=== PATIENT | male | born 1945 | race Caucasian/White ===

== ENCOUNTER → 2016-08-19 | Outpatient (CLI) | payer OTHER | LOC: BHFA 14:30 | PROVIDERS: ATTEND Internal Medicine Cardiovascular Disease | DX: I48.0 Paroxysmal atrial fibrillation (principal); I48.92 Unspecified atrial flutter ==

== ENCOUNTER → 2016-08-25 | Outpatient (CLI) | payer OTHER ==
[~2016-08-25] MED LIST: IOPAMIDOL (ISOVUE 370) 100 ML BTL IV ONE
[2016-08-25 09:51] LABS: CREATININE 1.3 mg/dL (0.7-1.3)
--- NOTE | 2016-08-25 10:20 | CT ---
CT Chest Angiogram With Contrast Enhancement and Multiplanar Reconstructions 0 927 hours History: Recurrent atrial fibrillation. Evaluate for pulmonary vein stenoses. Technique: Thin slice multidetector helical CT imaging was performed through the chest while 85 mL I sovue-370 were injected intravenously without complication. The images were then transferred to an in dependent workstation where multiplanar, volume rendering and three-dimensional reconstructions were performed by the interpreting physician and reviewed at multiple windows. Dose reduction techniques w ere utilized. Findings: CT Angiogram for left atrial anatomy: The pulmonary veins are evaluated. There are 2 main pulmonary v eins on the right as well as 2 on the left. The left atrial volume is 192 mL. Pulmonary veins draining right upper lobe: 22 x 20 mm diameter with branching occurring 6 mm from the origin. The right pulmonary vein draining right lower lun x 17 mm. Bifurcation occurs 9 mm from the orig in. Pulmonary vein draining left upper lun x 15 mm with branching occurring about 21 mm from the ame gin. Pulmonary vein draining left lower lun x 12 mm in diameter with branching occurring 23 mm from t he origin. There is normal enhancement of the pulmonary arterial vasculature without evidence of intraluminal th rombus. The thoracic aorta has a normal contour without aneurysm or dissection. CT Chest: There are no pulmonary nodules. There are no infiltrates or effusions. There is no hilar or mediastinal lymphadenopathy. Impression: Normal pulmonary vein anatomy, as detailed above. Normal CT Chest.
== END ==
LOC: FIMAGING 08:42
PROVIDERS: ATTEND Internal Medicine Cardiovascular Disease
DX: I48.91 Unspecified atrial fibrillation (principal)
CPT/HCPCS: 75572; Q9967

== ENCOUNTER 2016-08-31 11:09 | Observation (INO) | payer OTHER ==
[2016-08-31] MEDS ORDERED: NS 1,000 ML IV ONE (11:20)
[2016-08-31] MEDS ORDERED: MIDAZOLAM 2 MG/2 ML VIAL IVP ONE (11:20)
--- NOTE | 2016-08-31 11:47 | CPEKG ---
Heart Rate: 67 RR Interval: 896 P-R Interval: 192 QRSD Interval: 94 QT Interval: 400 QTC Interval: 423 P [place]: 68 QRS [place]: 49 T Wave [place]: 7 EKG Severity - ABNORMAL ECG - EKG Impression: SINUS RHYTHM EKG Impression: RIGHT VENTRICULAR HYPERTROPHY Electronically Signed By: Harvey Evans 31-Aug-2016 15:26:38
[2016-08-31 11:54] LABS: % IMMATURE GRANULYOCYTES 0.1 % (0.0-1.1); ABSOLUTE IMMATURE GRANULOCYTES 0.01 10^3/uL (0.00-0.10); ADD DIFF? NO; ADD MORPH? NO; ADD SCAN? NO; ATYPICAL LYMPHOCYTE FLAG 0 (0-99); FRAGMENT RBC FLAG 0 (0-99); HEMATOCRIT 48.7 % (40.0-51.0); HEMOGLOBIN 17.1 g/dL (13.7-17.5); LEFT SHIFT FLG 0 (0-99); LIPEMIA HEMOLYSIS FLAG 90 (0-99); MEAN CELL HEMOGLOBIN 32.6 pg (27.9-34.1); MEAN CELL HEMOGLOBIN CONCENTR. 35.1 g/dL (32.4-36.7); MEAN CELL VOLUME 92.9 fL (81.5-99.8); MEAN PLATELET VOLUME 9.7 fL (8.7-11.7); PLATELET CLUMPS FLAG 0 (0-99); PLATELET COUNT 205 10^3/uL (150-400); RED BLOOD CELL COUNT 5.24 10^6/uL (4.40-6.38); RED CELL DISTRIBUTION WIDTH 13.1 % (11.5-15.2)
[2016-08-31 12:07] LABS: INR 1.15 (0.83-1.16); PROTIME(PATIENT) 14.6 SEC (12.0-15.0)
[2016-08-31 12:08] LABS: APTT 31.3 SEC (23.0-38.0)
[2016-08-31 12:15] LABS: ANION GAP 10 mEq/L (8-16); CALCIUM 9.2 mg/dL (8.5-10.4); CARBON DIOXIDE 27 mEq/l (22-31); CHLORIDE 106 mEq/L (97-110); CREATININE 1.3 mg/dL (0.7-1.3); GLOMERULAR FILTRATION RATE 55; GLUCOSE 96 mg/dL (70-100); MAGNESIUM 2.1 mg/dL (1.6-2.3); POTASSIUM 4.4 mEq/L (3.5-5.2); SODIUM 143 mEq/L (134-144)
[2016-08-31] MEDS ORDERED: BUPIVACAINE 0.5% 30 ML SDV ONE (12:17)
[2016-08-31] MEDS ORDERED: LIDOCAINE 1% 30 ML SDV ONE (12:17)
[2016-08-31] MEDS ORDERED: HEPARIN 10,000 UNIT/10 ML MDV ONE (12:17)
[2016-08-31] MEDS ORDERED: HEPARIN/DEXTROSE 25,000 UNIT/500 ML BAG IV ONE (12:17)
[2016-08-31] MEDS ORDERED: IOPAMIDOL (ISOVUE-370) 150 ML BTL IV ONE (12:18)
[2016-08-31] MEDS ORDERED: PROPOFOL 200 MG/20 ML VIAL ONE (12:31)
[2016-08-31] MEDS ORDERED: fentaNYL 250 MCG/5 ML INJ ONE (12:31)
[2016-08-31] MEDS ORDERED: DEXAMETHASONE 4 MG/ML VIAL ONE ×2 (12:35→12:37)
[2016-08-31] MEDS ORDERED: ONDANSETRON 4 MG/2 ML VIAL ONE (12:35)
[2016-08-31] MEDS ORDERED: PHENYLEPHRINE HCL 100 MCG/ML SYR ONE (12:35)
[2016-08-31] MEDS ORDERED: SUCCINYLCHOLINE CHLORIDE*ANESTHESIA ONLY*200 MG/10 ML SYR IVP ONE (12:36)
[2016-08-31] MEDS ORDERED: DESFLURANE 240 ML BOTTLE IH ONE (13:19)
[2016-08-31] MEDS ORDERED: PROTAMINE SULFATE 50 MG/5 ML VIAL IVP ONE (15:21)
[2016-08-31] MEDS ORDERED: ACETAMINOPHEN 325 MG TAB PO PRN (15:30)
[2016-08-31] MEDS ORDERED: OXYCODONE/APAP 5/325 TAB PO PRN (15:30)
[2016-08-31] MEDS ORDERED: ONDANSETRON 4 MG/2 ML VIAL IVP PRN (15:30)
--- NOTE | 2016-08-31 15:42 | EPPROC ---
Electrophysiology Procedure Note: ELECTROPHYSIOLOGIC STUDY AND BALLOON-CATHETER MEDIATED CRYOABLATION FOR PAROXYSMAL ATRIAL FIBRILLATION and RF ABLATION FOR ATRIAL FLUTTER Procedures performed: 77971-13 EP evaluation with RA/RV/LA pace/record, with arrhythmia induction 57470-76 EP evaluation with RA/RV pace record, insert/reposition catheter, with arrhythmia induction 49056 Atrial fibrillation ablation Second arrhythmia Intracardiac echocardiogram Transseptal puncture Fluoroscopy INDICATION: Paroxysmal atrial fibrillation and atrial flutter PROCEDURE: The patient arrived in the Electrophysiology Laboratory in the fasting state. The right groin, left groin and right infraclavicular area were prepped and draped in the usual sterile fashion. Anesthesiologist administered general anesthesia - Dr. Arlette Doherty . All catheters were placed percutaneously using the Seldinger technique and advanced into position under fluoroscopic guidance. One #7 Marshallese deflectable octapolar electrode catheter was placed in the His-bundle position via the left femoral vein (2mm spacing, IVC electrode for unipolar recordings). This catheter was placed in the RA after transseptal puncture and later placed in the SVC-R subclavian vein junction to pace the right phrenic nerve during right pulmonary vein ablation. One #8 Marshallese AcuNaV ultrasound catheter was placed in the left femoral vein and advanced into the right atrium. One #4 Marshallese sheath was inserted into the left femoral artery via percutaneous technique and used for continuous arterial blood pressure monitoring and intermittent ACT determination. Programmed stimulation was performed from the right atrium, left atrium (CS) and right ventricle. There was no evidence of AV accessory pathway. 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 Intracardiac echo evaluation of the left atrium and pulmonary veins was performed. Baseline ACT was drawn and heparin bolus was administered and heparin drip was started prior to transseptal puncture. ACT was checked every 15 minutes and maintained in the range of 350-400 seconds. One 14Fr short sheath was placed in the right femoral vein. One 8Fr SL1 sheath was advanced into the right atrium via the 14Fr short sheath. Transseptal puncture was performed under intracardiac ultrasound, fluoroscopic and hemodynamic guidance placing the sheath into the left atrium. Ocean Butterflies RF needle ( C0 curve) was used. The mean left atrial pressure was 12 mmHg. Pulmonary vein angiogram was done using SL1 sheath. CT angiography of pulmonary veins was done previously. There were distinct LSPV, LIPV, RSPV and RIPV. The SL1 sheath was exchanged for a Medtronic Flexcath sheath using an Amplatz stiff guide wire. A 28 mm Cryoballoon catheter with a 20 mm Achieve catheter was placed via the sheath into the left atrium. Intracardiac ultrasound and PV angiograms were used to assist in placing the mapping catheter at the antrum of the pulmonary veins. All pulmonary veins were isolated successfully using cryoballoon ablation using freeze/thaw/freeze cycles at 2-3-minute intervals, with good [id number] of isolation. Coumadin ridge/Ligament of Rufino region was ablated. Pre and post pulmonary vein recordings were measured on the spiral Achieve catheter to ensure complete pulmonary vein isolation. During the right-sided ablation, phrenic nerve pacing was performed to assess the phrenic nerve strength ( manually and with ICE visualization of liver movement during phrenic capture) and the phrenic nerve was intact throughout the right-sided ablation and at the end of the procedure. An esophageal temperature probe (12 electrode, Circa) was placed by the anesthesiologist at the beginning of the procedure. Esophageal temperature was monitored continuously and cryoablation was interrupted if esophageal temperature was <15 C. Esophagus was closest to LSPV, there was temperature drop to 19 C with 1 ablation. Cryoapplications 8 total cryoablation time 1440 s. Catheters were withdrawn into RA. Flexcath was changed to short sheath, Agilis sheath was advanced into the RA. 3.5 mm irrigated ablation catheter was placed via the sheath and ablation done at the CT isthmus for atrial flutter. Bidirectional conduction block was achieved with septal to lateral conduction time of 205 ms. ICE imaging post ablation was consistent with pre ablation imaging with no changes noted, moreover there was no left atrial/left ventricular thrombus and no pericardial effusion. The catheters were withdrawn. Protamine was given. The sheaths were removed and manual pressure was used for hemostasis. The patient was recovered from anesthesia. There were no complications. The patient was arousable and moving all four extremities at the end of the procedure. CONCLUSIONS: 1. Paroxysmal atrial fibrillation. 2. Successful pulmonary vein isolation procedure (left and right pulmonary vein antrum) using cryoballoon ablation. 3. Irrigated RF ablation of cavotricuspid isthmus for atrial flutter. Bidirectional conduction block achieved. 4. No apparent complications. Patient Problems: Problems Problem Status Diagnosed Atrial fibrillation and flutter Acute
[2016-08-31] MEDS ORDERED: ATROPINE SULFATE 1 MG/10 ML SYR ONE (15:45)
--- NOTE | 2016-08-31 16:12 | CPEKG ---
Heart Rate: 81 RR Interval: 741 P-R Interval: 212 QRSD Interval: 98 QT Interval: 400 QTC Interval: 465 P [place]: 43 QRS [place]: 87 T Wave [place]: 6 EKG Severity - OTHERWISE NORMAL ECG - EKG Impression: SINUS RHYTHM EKG Impression: BORDERLINE RIGHT AXIS DEVIATION Electronically Signed By: Harvey Evans 01-Sep-2016 13:13:57
[2016-08-31 17:20] LABS: ANION GAP 9 mEq/L (8-16); CARBON DIOXIDE 20 mEq/l (22-31); CHLORIDE 109 mEq/L (97-110); CREATININE 1.2 mg/dL (0.7-1.3); GLOMERULAR FILTRATION RATE 60; GLUCOSE 135 mg/dL (70-100); MAGNESIUM 1.9 mg/dL (1.6-2.3); POTASSIUM 4.5 mEq/L (3.5-5.2); SODIUM 138 mEq/L (134-144)
[2016-08-31] MEDS ORDERED: ROSUVASTATIN CALCIUM 10 MG TAB PO SCH (21:00)
[2016-09-01] MEDS: ENOXAPARIN 80 MG/0.8 ML SYR SC SCH ×2 (00:59→08:14)
[2016-09-01] MEDS ORDERED: PANTOPRAZOLE SODIUM 40 MG TAB PO ONE (04:32)
[2016-09-01 05:20] LABS: % IMMATURE GRANULYOCYTES 0.4 % (0.0-1.1); ABSOLUTE IMMATURE GRANULOCYTES 0.05 10^3/uL (0.00-0.10); ADD DIFF? NO; ADD MORPH? NO; ADD SCAN? NO; ATYPICAL LYMPHOCYTE FLAG 0 (0-99); FRAGMENT RBC FLAG 0 (0-99); HEMATOCRIT 43.3 % (40.0-51.0); HEMOGLOBIN 15.1 g/dL (13.7-17.5); LEFT SHIFT FLG 0 (0-99); LIPEMIA HEMOLYSIS FLAG 90 (0-99); MEAN CELL HEMOGLOBIN 31.9 pg (27.9-34.1); MEAN CELL HEMOGLOBIN CONCENTR. 34.9 g/dL (32.4-36.7); MEAN CELL VOLUME 91.5 fL (81.5-99.8); MEAN PLATELET VOLUME 10.2 fL (8.7-11.7); PLATELET CLUMPS FLAG 0 (0-99); PLATELET COUNT 169 10^3/uL (150-400); RED BLOOD CELL COUNT 4.73 10^6/uL (4.40-6.38); RED CELL DISTRIBUTION WIDTH 13.1 % (11.5-15.2)
[2016-09-01 05:38] LABS: INR 1.15 (0.83-1.16); PROTIME(PATIENT) 14.6 SEC (12.0-15.0)
[2016-09-01 05:46] LABS: ANION GAP 9 mEq/L (8-16); CALCIUM 8.5 mg/dL (8.5-10.4); CARBON DIOXIDE 21 mEq/l (22-31); CHLORIDE 108 mEq/L (97-110); GLOMERULAR FILTRATION RATE > 60; GLUCOSE 120 mg/dL (70-100); POTASSIUM 4.4 mEq/L (3.5-5.2); SODIUM 138 mEq/L (134-144)
[2016-09-01 05:58] LABS: CK-MB INTERPRETATION POSITIVE (NEGATIVE)
[2016-09-01] MEDS: NEBIVOLOL HCL 5 MG TAB PO SCH ×2 (08:14→08:25)
[2016-09-01 08:18] VITALS: TEMP 97.7
--- NOTE | 2016-09-01 08:43 | CPEKG ---
Heart Rate: 76 RR Interval: 789 P-R Interval: 180 QRSD Interval: 94 QT Interval: 388 QTC Interval: 437 P [place]: 45 QRS [place]: 47 T Wave [place]: -6 EKG Severity - OTHERWISE NORMAL ECG - EKG Impression: SINUS RHYTHM EKG Impression: VENTRICULAR PREMATURE COMPLEX Electronically Signed By: Harvey Evans 01-Sep-2016 13:13:53
--- NOTE | 2016-09-01 08:44 | ECHO ---
[id number] + + [address] : : [place] [address] : : [phone] + Adult Echocardiographic Report + ----+ :Name: JAMES IZQUIERDO LStudy Date: 09/01/2016 07:15 AM : : Hospital Admission Number: [id number] Location: 249: :: 1945 Gender: Male Height: 71 in : :Age: 70 yrs Race: WH Weight: 175 lb : :Reason For Study: Post EP study : : BSA: 2.0 meters2 : + ----+ MMode/2D Measurements & Calculations IVSd: 1.0 cm LVIDd: 4.2 cm FS: 52.5 % Ao root diam: LVPWd: 0.77 cm LVIDs: 2.0 cm EDV(Teich): 3.7 cm 78.9 ml LA dimension: ESV(Teich): 3.0 cm 12.7 ml EF(Teich): 83.9 % LVLd ap4: 7.9 cm SV(MOD-sp4): EDV(MOD-sp4): 44.0 ml 62.0 ml LVLs ap4: 6.3 cm ESV(MOD-sp4): 18.0 ml EF(MOD-sp4): 71.0 % Normal Measurement Values: + + :LVIDd (3.5-5.7cm) IVSd (0.6-1.1cm) LVPWd (0.6-1.1cm) Aortic Root (2.0-3.7cm)Left Atrium (1.5-4.0cm): :LV Vol(d) (76-115ml) LV Vol(s) (29-48ml) Ejec Fraction (50-65%)PV Diomedes (0.6- 1.2m/s) TV Diomedes (0.4-1.0m/s) : :MV E Diomedes (0.8-1.0m/s)MV A Diomedes (0.3-1.0m/s)LVOT Diomedes (0.7-1.2m/s) Asc Ao Diomedes ( 0.9-1.8m/s) : + + Doppler Measurements & Calculations MV E max diomedes: 60.2 cm/sec Ao V2 max: 114.0 cm/sec MV A max diomedes: 50.8 cm/sec Ao max P.2 mmHg MV E/A: 1.2 Left Ventricle The left ventricle is normal in size and function. There is normal left ventricular wall thickness. Left ventricular systolic function is normal. Ejection Fraction = 70-75%. No regional wall motion abnormalities noted. Right Ventricle The right ventricle is normal in size and function. Atria The left atrial size is normal. Right atrial size is normal. The interatrial septum is intact with no evidence for an atrial septal defect. Mitral Valve Prolapse of the posterior mitral leaflet(s). There is no mitral valve stenosis. Tricuspid Valve Normal tricuspid valve. There is mild tricuspid regurgitation. Right ventricular systolic pressure is normal. Aortic Valve The aortic valve is trileaflet. The aortic valve opens well. There is no aortic stenosis. There is no aortic insufficiency. Pulmonic Valve The pulmonic valve is normal in structure and function. Trace pulmonic valvular regurgitation. Great Vessels The aortic root is normal size. Pericardium/Pleural There is no pericardial effusion. Conclusion A complete two-dimensional transthoracic echocardiogram was performed (2D, M-mode, Doppler and color flow Doppler). The left ventricle is normal in size and function. Left ventricular systolic function is normal. Ejection Fraction = 70-75%. There is mild tricuspid regurgitation. Trace pulmonic valvular regurgitation. There is no pericardial effusion. Final Reading Physician: Harvey Evans MD electronically signed on 09/01/2016 08:42 AM Ordering Physician: Harevy Evans Performed By: Cathy Rodriguez, [facility]
[2016-09-01] MEDS ORDERED: PANTOPRAZOLE SODIUM 40 MG TAB PO SCH (09:00)
[2016-09-01] MEDS ORDERED: ASPIRIN EC 81 MG TAB PO SCH (09:00)
[2016-09-01 11:15] VITALS: BP 124/71; PULSE 75; RESP 15; O2SAT 97
--- NOTE | 2016-09-01 18:52 | GDS ---
[f rep st] DISCHARGE SUMMARY ADMIT DIAGNOSES: 1. Atrial fibrillation. 2. Atrial flutter. 3. Planned EP study with likely atrial fibrillation/atrial flutter ablation. DISCHARGE DIAGNOSIS: Status post successful cryo ablation for paroxysmal atrial fibrillation and RF ablation for atrial flutter. HOSPITAL COURSE: The patient was admitted to the hospital on August 31, 2016 for planned electrophy siology study and probable atrial fibrillation and atrial flutter ablation. He had failed medical th erapy. He was taken to the EP lab where Dr. Evans was able to perform successful pulmonary vein isolat ion procedure (left and right pulmonary vein antrum) using cryo balloon ablation. Balloon catheter m ediated cryoablation for paroxysmal atrial fibrillation, and RF ablation for atrial flutter. There w ere no complications. He was taken to ICU step-down for overnight observation where he has done well . He has had no groin bleeding, no breakthrough atrial fibrillation noted. He is asymptomatic. He has been up ambulating the halls with no side effects, dizziness, or groin bleeding. He was given Lo venox injection this morning and will resume Pradaxa starting this evening. Echocardiogram was done with no identified abnormalities. He will stop Rythmol at this time and continue his Bystolic. At t his time, he currently is stable for discharge. ALLERGIES: He has allergies to ketamine. HOME MEDICATIONS: Crestor 10 mg at bedtime, Bystolic 2.5 mg daily, aspirin 81 mg daily, Prilosec 20 mg daily, Pradaxa 150 mg b.i.d., Tylenol 325 mg 1-2 tablets every 4 hours as needed for pain, not to exceed 3 g daily. DISCHARGE PHYSICAL EXAM: VITAL SIGNS: On day of discharge, blood pressure 124/71, heart rate 75 and regular, oxygen saturation 97%, temperature 36.5 Celsius. HEART: Rate regular. No murmurs rubs or gallops. LUNGS: Sounds are clear to auscultation. No wheezes, rales, or rhonchi. Bilateral groin sites are intact with no bleeding, induration or tenderness. Peripheral pulses are 2+ bilaterally. DISCHARGE PLAN: He will follow up with Dr. Evans in 2 weeks. This appointment was previously schedule d. He will stop his Rythmol. He will continue on Bystolic and continue omeprazole for 4 weeks. He will restart his Pradaxa this evening. Groin site precautions were reviewed with him. He is to avoi d aggressive exercise for 3 weeks. No sitting in a tub of water for 1 week. He will call the office should he have any concerns or problems. At this time, he currently is stable for discharge. /[id number]/MODL
[2016-09-01] MEDS ORDERED: DABIGATRAN ETEXILATE MESYL 150 MG CAP PO SCH (21:00)
--- NOTE | 2016-09-08 08:33 | ECHO ---
[id number] + + [address] : : [facility] [address] : : [phone] + + Transesophageal Echocardiographic Report + -------+ :Name: JAMES IZQUIERDO LStudy Date: 08/31/2016 12:57 PM : : Hospital Admission Number: [id number] Location: lab: :: 1945 Gender: Male : :Age: 70 yrs Race: WH : :Reason For Study: Eval LV Fx, BE : :History: Pre Ablation : + -------+ Left Ventricle The left ventricular ejection fraction is normal. Atria Injection of contrast documented no interatrial shunt. The interatrial septum is intact with no evidence for an atrial septal defect. No left atrial mass or thrombus visualized. No thrombus is detected in the left atrial appendage. Mitral Valve The mitral valve is normal. There is no mitral valve stenosis. There is trace mitral regurgitation. Tricuspid Valve The tricuspid valve is normal in structure and function. Aortic Valve The aortic valve is trileaflet. The aortic valve opens well. There is no aortic stenosis. There is no aortic insufficiency. Pulmonic Valve The pulmonic valve is normal in structure and function. There is no pulmonic valvular regurgitation. Conclusion A 2D transesophageal echocardiogram with color flow Doppler was performed. The left ventricular ejection fraction is normal. Injection of contrast documented no interatrial shunt. The interatrial septum is intact with no evidence for an atrial septal defect. No left atrial mass or thrombus visualized. No thrombus is detected in the left atrial appendage. The mitral valve is normal. There is trace mitral regurgitation. The aortic valve is trileaflet. The aortic valve opens well. Final Reading Physician: Harvey Evans MD electronically signed on 09/08/2016 08:31 AM Ordering Physician: Harvey Evans Performed By: Harvey Evnas MD
== END 2016-09-01 12:22 | disposition home or self-care (01) ==
LOC: FCATH 11:09 → F2N 15:30
PROVIDERS: ADMIT Internal Medicine Cardiovascular Disease; ATTEND Internal Medicine Cardiovascular Disease
PROC: 025S3ZZ Destruction of Right Pulmonary Vein, Percutaneous Approach (ICD-10-PCS; principal; 2016-08-31)
PROC: B244ZZZ Ultrasonography of Right Heart (ICD-10-PCS; principal; 2016-08-31)
PROC: 4A0234Z Measurement of Cardiac Electrical Activity, Percutaneous Approach (ICD-10-PCS; principal; 2016-08-31)
PROC: 4A023FZ Measurement of Cardiac Rhythm, Percutaneous Approach (ICD-10-PCS; principal; 2016-08-31)
PROC: 02563ZZ Destruction of Right Atrium, Percutaneous Approach (ICD-10-PCS; principal; 2016-08-31)
DX: I48.0 Paroxysmal atrial fibrillation (principal); I48.92 Unspecified atrial flutter; Z79.01 Long term (current) use of anticoagulants
CPT/HCPCS: 93005; 93306; 93609; 93621; 93655; 93656; 93662; C1730; C1731; C1732; C1733; C1766; C1893; C2630; J0330; J1100; J1644; J1650; J2250; J2370; J2405; J2704; J2720; J3010; Q9967; J0461

== ENCOUNTER → 2016-09-02 | Outpatient (CLI) | payer OTHER | LOC: BHFA 14:45 | PROVIDERS: ATTEND Internal Medicine Cardiovascular Disease | DX: I48.0 Paroxysmal atrial fibrillation (principal); I48.92 Unspecified atrial flutter; I10 Essential (primary) hypertension; E78.5 Hyperlipidemia, unspecified ==

== ENCOUNTER → 2016-09-17 | Outpatient (CLI) | payer OTHER | LOC: BHFA 09:45 | PROVIDERS: ATTEND Internal Medicine Cardiovascular Disease | DX: I48.91 Unspecified atrial fibrillation (principal) ==

== ENCOUNTER → 2016-10-19 | Outpatient (CLI) | payer OTHER | LOC: BHFA 09:30 | PROVIDERS: ATTEND Internal Medicine Cardiovascular Disease | DX: I48.91 Unspecified atrial fibrillation (principal) ==

== ENCOUNTER → 2016-12-17 | Outpatient (CLI) | payer OTHER | LOC: BHFA 10:00 | PROVIDERS: ATTEND Internal Medicine Interventional Cardiology | DX: I48.91 Unspecified atrial fibrillation (principal) ==

== ENCOUNTER 2016-12-30 12:12 | Emergency (ER) | payer OTHER ==
[2016-12-30 12:21] VITALS: RESP 16; O2SAT 95
--- NOTE | 2016-12-30 12:33 | CPEKG ---
Heart Rate: 68 RR Interval: 882 P-R Interval: 184 QRSD Interval: 88 QT Interval: 392 QTC Interval: 417 P [place]: 40 QRS [place]: 50 T Wave [place]: 13 EKG Severity - NORMAL ECG - EKG Impression: SINUS RHYTHM Electronically Signed By: Valentín Huntley 30-Dec-2016 15:33:04
--- NOTE | 2016-12-30 13:01 | EDPHY ---
H & P Stated Complaint: pre syncope last night, got dizzy no pain, hx a fib ablation Time Seen by Provider: 12/30/16 13:00 HPI/ROS: CHIEF COMPLAINT: Syncope HISTORY OF PRESENT ILLNESS: The patient presents to the ED for evaluation after a he experienced a syncopal episode last night. The patient reportedly did have a busy day yesterday with not much to eat or drink. He reportedly had 1 syncopal episode approximately 6 o'clock in the evening. Patient did feel better after rehydrating at his house. The patient had no recurrent syncope. He had no complaints of chest pain or shortness of breath. The patient does have a history of atrial fibrillation and reportedly had a Holter monitor performed last week. The patient also has a history of atrial fibrillation treated with ablation in August of this year. The patient has not had any sensation of atrial fibrillation over the past 2 days. The patient has continued to be entirely asymptomatic today. He specifically denies chest pain , pleuritic chest pain, orthostasis, headache, numbness, weakness or other concerns. REVIEW OF SYSTEMS: A comprehensive 10 point review of systems is otherwise negative aside from elements mentioned in the history of present illness. Source: Patient Exam Limitations: No limitations - Personal History Current Tetanus/Diphtheria Vaccine: Unsure Current Tetanus Diphtheria and Acellular Pertussis (TDAP): Unsure - Medical/Surgical History Hx Asthma: No Hx Chronic Respiratory Disease: No Hx Diabetes: No Hx Cardiac Disease: Yes Hx Renal Disease: No Hx Cirrhosis: No Hx Alcoholism: No Hx HIV/AIDS: No Hx Splenectomy or Spleen Trauma: No Other PMH: PMH- AFIB, ablation 09/11. PSH- TRP, R TOTAL HIP - Social History Smoking Status: Never smoked - Physical Exam Exam: General Appearance: Alert, no distress Eyes: Pupils equal and round no pallor or injection ENT, Mouth: Mucous membranes moist Respiratory: There are no retractions, lungs are clear to auscultation Cardiovascular: Regular rate and rhythm Gastrointestinal: Abdomen is soft and nontender, no masses, bowel sounds normal Neurological: A&O, normal motor function, normal sensory exam, normal cranial nerves Skin: Warm and dry, no rashes Musculoskeletal: Neck is supple nontender Extremities: symmetrical, full range of motion Constitutional: Initial Vital Signs Temperature (C) 36.4 C 12/30/16 12:18 Heart Rate 72 12/30/16 12:18 Respiratory Rate 16 12/30/16 12:18 Blood Pressure 162/87 H 12/30/16 12:18 O2 Sat (%) 95 12/30/16 12:18 O2 Delivery Mode Room Air Allergies/Adverse Reactions: ketamine Allergy (Verified 08/31/16 12:45) Other-Enter Comments Home Medications: Medication Instructions Recorded Aspirin EC [Aspirin EC 81 mg (*)] 81 mg PO DAILY 07/13/16 Nebivolol HCl [Bystolic] 2.5 mg PO DAILY 07/13/16 Rosuvastatin Calcium [Crestor] 10 mg PO HS 07/13/16 Omeprazole [Prilosec 20 mg] 20 mg PO DAILY 08/31/16 Acetaminophen [Tylenol 325mg (*)] 325 - 650 mg PO Q4HRS PRN #0 tab 09/01/16 Dabigatran Etexilate Mesyl 150 mg PO BID 90 Days 09/01/16 [Pradaxa 150 MG (*)] Medical Decision Making - Diagnostics EKG Interpretation: EKG: Complete interpretation has been separately recorded in the [facility] archive. Summary impression: Sinus rhythm, no ischemic changes ED Course/Re-evaluation: The patient was placed on a drywall hanger. He had no evidence of an arrhythmia in the ED. The patient had an IV established. He received a L of normal saline. The patient's laboratory studies are unremarkable. The patient has no history of acute coronary syndrome. At this point time I do believe the etiology of his symptoms were likely vasovagal in nature. He has no evidence of a critical anemia, arrhythmia or metabolic abnormality. The patient is comfortable following up with his primary care provider. He has been instructed to return to the ED for recurrent syncope, chest pain, difficulty breathing or other acute concerns. The patient was reexamined by myself at 2:15 p.m.. He continues to be neurologically intact with stable vital signs. His discharge questions have been answered. Differential Diagnosis: Differential diagnosis considered includes arrhythmia, dehydration, critical anemia, metabolic abnormality - Data Points Laboratory Results: Laboratory Results 12/30/16 12:30 12/30/16 12:30 12/30/16 12/30/16 12:30 12:30 WBC 9.51 10^3/uL H 10^3/uL (3.80-9.50) RBC 5.52 10^6/uL 10^6/uL (4.40-6.38) Hgb 17.7 g/dL H g/dL (13.7-17.5) Hct 51.4 % H % (40.0-51.0) MCV 93.1 fL fL (81.5-99.8) MCH 32.1 pg pg (27.9-34.1) MCHC 34.4 g/dL g/dL (32.4-36.7) RDW 12.6 % % (11.5-15.2) Plt Count 228 10^3/uL 10^3/uL (150-400) MPV 10.8 fL fL (8.7-11.7) Neut % (Auto) 64.1 % % (39.3-74.2) Lymph % (Auto) 26.1 % % (15.0-45.0) [place] % (Auto) 8.9 % % (4.5-13.0) Eos % (Auto) 0.2 % L % (0.6-7.6) Baso % (Auto) 0.3 % % (0.3-1.7) Nucleat RBC Rel Count 0.0 % % (0.0-0.2) Absolute Neuts (auto) 6.09 10^3/uL 10^3/uL (1.70-6.50) Absolute Lymphs (auto) 2.48 10^3/uL 10^3/uL (1.00-3.00) Absolute Monos (auto) 0.85 10^3/uL H 10^3/uL (0.30-0.80) Absolute Eos (auto) 0.02 10^3/uL L 10^3/uL (0.03-0.40) Absolute Basos (auto) 0.03 10^3/uL 10^3/uL (0.02-0.10) Absolute Nucleated RBC 0.00 10^3/uL 10^3/uL (0-0.01) Immature Gran % 0.4 % % (0.0-1.1) Immature Gran # 0.04 10^3/uL 10^3/uL (0.00-0.10) Sodium 141 mEq/L mEq/L (134-144) Potassium 4.1 mEq/L mEq/L (3.5-5.2) Chloride 106 mEq/L mEq/L (97-110) Carbon Dioxide 23 mEq/l mEq/l (22-31) Anion Gap 12 mEq/L mEq/L (8-16) BUN 13 mg/dL mg/dL (7-23) Creatinine 1.2 mg/dL mg/dL (0.7-1.3) Estimated GFR 60 Glucose 95 mg/dL mg/dL (70-100) Calcium 8.9 mg/dL mg/dL (8.5-10.4) Troponin I < 0.012 ng/mL ng/mL (0-0.034) Medications Given: Discontinued Medications Sodium Chloride (Ns) 1,000 mls @ 0 mls/hr IV ONCE ONE; Wide Open PRN Reason: Protocol Stop: 12/30/16 13:15 Last Admin: 12/30/16 13:18 Dose: 1,000 mls Departure - Departure Disposition: Home, Routine, Self-Care Clinical Impression: Vasovagal episode, Syncope Condition: Good Instructions: Syncope (ED) Additional Instructions: 1. Return to the ED for any recurrent passing out, chest pain, shortness of breath or other concerns. 2. Your EKG and laboratory studies today show no acute abnormality. 3. I do believe your symptoms today were likely caused by dehydration. Please try and increase your fluid intake. Referrals: [facility] [Primary Care Provider] - As per Instructions
[2016-12-30] MEDS ORDERED: NS 1,000 ML IV ONE (13:14)
[2016-12-30 13:19] LABS: % IMMATURE GRANULYOCYTES 0.4 % (0.0-1.1); ABSOLUTE IMMATURE GRANULOCYTES 0.04 10^3/uL (0.00-0.10); ADD DIFF? NO; ADD MORPH? NO; ADD SCAN? NO; ATYPICAL LYMPHOCYTE FLAG 0 (0-99); FRAGMENT RBC FLAG 0 (0-99); HEMATOCRIT 51.4 % (40.0-51.0); HEMOGLOBIN 17.7 g/dL (13.7-17.5); LEFT SHIFT FLG 0 (0-99); LIPEMIA HEMOLYSIS FLAG 90 (0-99); MEAN CELL HEMOGLOBIN 32.1 pg (27.9-34.1); MEAN CELL HEMOGLOBIN CONCENTR. 34.4 g/dL (32.4-36.7); MEAN CELL VOLUME 93.1 fL (81.5-99.8); MEAN PLATELET VOLUME 10.8 fL (8.7-11.7); PLATELET CLUMPS FLAG 0 (0-99); PLATELET COUNT 228 10^3/uL (150-400); RED BLOOD CELL COUNT 5.52 10^6/uL (4.40-6.38); RED CELL DISTRIBUTION WIDTH 12.6 % (11.5-15.2)
[2016-12-30 13:32] LABS: ANION GAP 12 mEq/L (8-16); CALCIUM 8.9 mg/dL (8.5-10.4); CARBON DIOXIDE 23 mEq/l (22-31); CHLORIDE 106 mEq/L (97-110); CREATININE 1.2 mg/dL (0.7-1.3); GLOMERULAR FILTRATION RATE 60; GLUCOSE 95 mg/dL (70-100); POTASSIUM 4.1 mEq/L (3.5-5.2); SODIUM 141 mEq/L (134-144)
[2016-12-30 13:44] LABS: TROPONIN I < 0.012 ng/mL (0-0.034)
[2016-12-30 14:24] VITALS: BP 124/79; PULSE 66; TEMP 98.4
== END 2016-12-30 14:24 | disposition home or self-care (01) ==
DX: R55 Syncope and collapse (principal); Z79.82 Long term (current) use of aspirin

== ENCOUNTER → 2017-03-24 | Outpatient (CLI) | payer OTHER | LOC: BHFA 09:00 | PROVIDERS: ATTEND Internal Medicine Cardiovascular Disease | DX: I48.91 Unspecified atrial fibrillation (principal) ==

== ENCOUNTER → 2017-10-06 | Day surgery (SDC) | payer OTHER ==
[~2017-10-06] MED LIST changes: -IOPAMIDOL (ISOVUE 370) 100 ML BTL IV ONE; +LIDOCAINE 1% 300 MG/30 ML SDV SC ONE
--- NOTE | 2017-10-06 12:04 | PDPROPOC ---
Sedation Plan of Care Sedation Plan of Care: vital signs stable, mental status noted, patient educated of risks, benefits, alternatives, patient can tolerate sedation ASA Classification: ASA 1 Planned drugs: fentanyl, midazolam Mallampati Score: Class 1 Mallampati Reference Image: Patient passed 3-3-2 rule?: Yes
--- NOTE | 2017-10-06 12:04 | PDGENHP ---
History & Physical Chief Complaint: presyncope History of Present Illness: presyncope when af stops Relevant Physical Exam: [id number] Cardiorespiratory Assessment: LINQ implant. No sedation planned
--- NOTE | 2017-10-06 13:27 | EPPROC ---
Electrophysiology Procedure Note: PROCEDURE PERFORMED: Implantation of Medtronic LINQ Implantable Loop Recorder INDICATION: Near syncope PROCEDURE NOTE: Patient was on table after EP study. L parasternal area was prepped and draped. Lidocaine plus bupivacaine was used for local anesthesia. Using provided insertion tool, LINQ device was placed along the 4th intercostal space. Appropriate dressing was applied. The patient left the cardiac catheterization laboratory in stable condition. Serial Numbers: Medtronic Reveal [id number] Programming: Patient Activated events 3 Auto Activated events Asystole 3s, HR <40 bpm, >160 bpm) Patient Problems: Problems Problem Status Onset Pre-syncope Acute Atrial fibrillation and flutter Acute
== END | disposition home or self-care (01) ==
LOC: FCATH 11:19
PROVIDERS: ATTEND Internal Medicine Cardiovascular Disease
PROC: 0JH602Z Insertion of Monitoring Device into Chest Subcutaneous Tissue and Fascia, Open Approach (ICD-10-PCS; principal; 2017-10-06)
DX: R55 Syncope and collapse (principal); I48.91 Unspecified atrial fibrillation; I48.92 Unspecified atrial flutter; I10 Essential (primary) hypertension; Z79.82 Long term (current) use of aspirin; Z79.01 Long term (current) use of anticoagulants; Z86.73 Personal history of transient ischemic attack (TIA), and cerebral infarction without residual deficits
CPT/HCPCS: C1764

== ENCOUNTER 2017-11-09 11:24 | Observation (INO) | payer OTHER ==
[2017-11-09] MEDS ORDERED: NS 1,000 ML IV ONE (11:27)
--- NOTE | 2017-11-09 11:51 | CPEKG ---
Heart Rate: 75 RR Interval: 800 P-R Interval: 168 QRSD Interval: 92 QT Interval: 396 QTC Interval: 443 P [place]: 73 QRS [place]: 62 T Wave [place]: 16 EKG Severity - BORDERLINE ECG - EKG Impression: SINUS RHYTHM EKG Impression: BORDERLINE INFERIOR Q WAVES Electronically Signed By: Harvey Evans 09-Nov-2017 12:04:25
--- NOTE | 2017-11-09 12:03 | PDGENHP ---
History & Physical Chief Complaint: palpitations, post AFIB pause Relevant Physical Exam: [id number]. cta. ao3 Cardiorespiratory Assessment: AFIB, prior CB ablation, for RFA redo procedure
[2017-11-09 12:21] LABS: PLATELET COUNT 198 10^3/uL (150-400)
[2017-11-09 12:30] LABS: INR 1.11 (0.83-1.16); PROTIME(PATIENT) 14.5 SEC (12.0-15.0)
[2017-11-09] MEDS ORDERED: MIDAZOLAM 2 MG/2 ML VIAL IVP ONE (12:37)
--- NOTE | 2017-11-09 12:37 | PDANEPAE ---
ANE History of Present Illness afib ANE Past Medical History - Cardiovascular History Hx Arrhythmias: Yes - Pulmonary History Hx Oxygen in Use at Home: No Hx Sleep Apnea: No - Endocrine History Hx Diabetes: No Endocrine History Comment: Myasthenia Gravis - Chronic Pain History Chronic Pain: Yes ANE Review of Systems Review of Systems: ANE Patient History - Allergies Allergies/Adverse Reactions: ketamine Allergy (Verified 08/31/16 12:45) Other-Enter Comments - Home Medications Home Medications: Aspirin EC [Aspirin EC 81 mg (*)] 81 mg PO DAILY 07/13/16 [Last Taken 11/06/17] Rosuvastatin Calcium [Crestor] 10 mg PO HS 07/13/16 [Last Taken 11/08/17] Omeprazole [Prilosec 20 mg] 20 mg PO DAILY 08/31/16 [Last Taken 11/08/17] Apixaban [Eliquis] 5 mg PO BID 11/04/17 [Last Taken 11/06/17] Nebivolol HCl [Bystolic 5 mg (*)] 2.5 mg PO HS 11/04/17 [Last Taken 11/08/17] predniSONE [predniSONE] 10 mg PO Q2D 11/04/17 [Last Taken 11/08/17] - Smoking Hx Smoking Status: Never smoked ANE Labs/Vital Signs - Labs Result Diagrams: 11/09/17 12:10 11/09/17 12:10 - Vital Signs Height: 180 cm Weight: 79.1 kg ANE Physical Exam - Airway Neck exam: FROM Mallampati Score: Class 2 Mouth exam: normal dental/mouth exam - Pulmonary Pulmonary: no respiratory distress - Cardiovascular Cardiovascular: regular rate and rhythym - ASA Status ASA Status: III ANE Anesthesia Plan Anesthesia Plan: general endotracheal anesthesia
[2017-11-09] MEDS ORDERED: HEPARIN/DEXTROSE 25,000 UNIT/500 ML BAG ONE (12:51)
[2017-11-09] MEDS ORDERED: HEPARIN 10,000 UNIT/10 ML MDV (1,000 UNIT/ML) ONE (12:52)
[2017-11-09] MEDS ORDERED: BUPIVACAINE 0.5% 30 ML SDV ONE (12:52)
[2017-11-09] MEDS ORDERED: LIDOCAINE 1% 300 MG/30 ML SDV ONE (12:52)
[2017-11-09] MEDS ORDERED: fentaNYL 100 MCG/2 ML INJ ONE ×2 (12:56)
[2017-11-09] MEDS ORDERED: PROPOFOL 200 MG/20 ML VIAL ONE ×2 (12:56→13:27)
[2017-11-09] MEDS ORDERED: PROTAMINE SULFATE 50 MG/5 ML VIAL IVP ONE (15:22)
[2017-11-09] MEDS ORDERED: epHEDrine SULFATE 10 MG/ML SYR ONE (15:43)
[2017-11-09] MEDS ORDERED: ONDANSETRON 4 MG/2 ML VIAL ONE (15:43)
[2017-11-09] MEDS ORDERED: DEXAMETHASONE 4 MG/ML VIAL ONE (15:43)
[2017-11-09] MEDS ORDERED: PHENYLEPHRINE HCL 100 MCG/ML SYR ONE (15:43)
--- NOTE | 2017-11-09 15:56 | EPPROC ---
Electrophysiology Procedure Note: ELECTROPHYSIOLOGIC STUDY AND CATHETER MEDIATED ABLATION FOR PAROXYSMAL ATRIAL FIBRILLATION Procedures performed: 64413-81 EP evaluation with RA/RV/LA pace/record, with arrhythmia induction 17586-77 EP evaluation with RA/RV pace record, insert/reposition catheter, with arrhythmia induction 60388 Atrial fibrillation ablation 11924 3D mapping Intracardiac echocardiogram Transseptal puncture Fluoroscopy INDICATION: Paroxysmal atrial fibrillation Prior CB ablation with improvement in symptoms but short episodes of AFIB with post conversion pauses PROCEDURE: The patient arrived in the Electrophysiology Laboratory in the fasting state. The right groin, left groin and right infraclavicular area were prepped and draped in the usual sterile fashion. Anesthesiologist administered general anesthesia Dr. Teresa Storey . All catheters were placed percutaneously using the Seldinger technique and advanced into position under fluoroscopic guidance. One #7 Albanian deflectable octapolar electrode catheter was placed in the His-bundle position via the left femoral vein (2mm spacing, IVC electrode for unipolar recordings). This catheter was placed in the coronary sinus after transseptal puncture. One #8 [place] AcuNaV ultrasound catheter was placed in the left femoral vein and advanced into the right atrium. Programmed stimulation was performed from the right atrium, left atrium (CS) and right ventricle. There was no evidence of AV accessory pathway. Intracardiac echo evaluation of the left atrium and pulmonary veins was performed. Baseline ACT was drawn and heparin bolus was administered and heparin drip was started prior to transseptal puncture. ACT was checked every 15 minutes and maintained in the range of 350-400 seconds. One SL1 sheath was inserted into the right femoral vein and advanced into the right atrium. Transseptal puncture was performed under intracardiac ultrasound , fluoroscopic and hemodynamic guidance placing the sheath into the left atrium. 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 [place] RF needle (C0 curve) was used. The mean left atrial pressure was 8 mmHg. Pentaray catheter was placed in the left atrium and a high resolution map of LA and PV was obtained. LSPV was reconnected. One #8 [place] quadrapolar electrode catheter (1mm-5mm-2mm spacing) with saline irrigated 3.5mm tip electrode (Kinte[employer] Labter Thermo-Cool catheter) and location sensor for the [place] 3D mapping system was inserted through the transseptal sheath. Ablation (20-25 W, 15-30s) was applied inferior to LIPV , anterior to LSPV and LIPV and anterior to LPV francisco. Ablation was also applied anterior to RSPV, to RPV francisco and anterior to RIPV. Patient developed spontaneous AFIB that terminated during ablation posterior to LIPV. Fragmented signals were seen along IAS anterior to RIPV and these were ablated as well. Total ablation time 1100 seconds. Remap of LA and PV using Pentaray catheter was done, this showed isolation of LSPV and scar in ablated areas from today. Halo catheter was placed along tricupsid annulus. Previously done ablation demonstrated bidirectional conduction block along the isthmus. An esophageal temperature probe (12 electrode, Circa) was placed by the anesthesiologist at the beginning of the procedure. Esophageal temperature was monitored continuously and RF ablation was interrupted if there was a temperature rise >0.5 C. There was no esophageal temperature rise. ICE imaging was consistent with pre ablation imaging; moreover it showed no pericardial effusion or LA/BE thrombus at the end of the procedure. The catheters were withdrawn. Protamine was given. Venous vascular access sheaths were removed in the EP lab after placing subcutaneous pursestring suture. The patient was recovered from anesthesia. Patient was taken to the ICU in stable condition. There were no complications. CONCLUSIONS: 1. Paroxsyamal atrial fibrillation. 2. Successful pulmonary vein re- isolation procedure (left and right pulmonary vein antrum) 3. Previous ablation for atrial flutter continues to demonstrate bidirectional conduction block. 4. No apparent complications. RECOMMENDATIONS: If patient continues to have AFIB post ablation, he understands that we have recommended pacemaker implant for post conversion pauses. Patient Problems: Problems Problem Status Onset Pre-syncope Acute Atrial fibrillation and flutter Acute
[2017-11-09] MEDS ORDERED: NALOXONE HCL 0.4 MG/ML INJ IVP PRN (15:59)
--- NOTE | 2017-11-09 16:00 | POSTANESTH ---
Post Anesthetic Evaluation Cardiovascular Status: Normal, Stable Respiratory Status: Normal, Stable Level of Consciousness/Mental Status: Can Participate in Eval Pain Control: Adequate, Prn Tx Ordered Nausea/Vomiting Control: Adequate, Prn Tx Ordered Complications Possibly Related to Anesthesia: None Noted
--- NOTE | 2017-11-09 16:28 | CPEKG ---
Heart Rate: 90 RR Interval: 667 P-R Interval: 188 QRSD Interval: 90 QT Interval: 372 QTC Interval: 455 P [place]: 69 QRS [place]: 60 T Wave [place]: -12 EKG Severity - BORDERLINE ECG - EKG Impression: SINUS RHYTHM EKG Impression: BORDERLINE INFERIOR Q WAVES EKG Impression: BORDERLINE T ABNORMALITIES, INFERIOR LEADS -- MORE PROMINENT SINCE NOVEMBER 09, EKG Impression: 2017, 11:49 EKG Impression: SLIGHT ST DEPRESSION V5-V6. CONSIDER ISCHEMIA. NO CHANGE FROM PREVIOUS. Electronically Signed By: Benjamin Arce 09-Nov-2017 20:18:35
[2017-11-09] MEDS: ACETAMINOPHEN 325 MG TAB PO PRN (19:25)
[2017-11-09] MEDS ORDERED: ROSUVASTATIN CALCIUM 10 MG TAB PO SCH (21:00)
[2017-11-09] MEDS ORDERED: NEBIVOLOL HCL 5 MG TAB PO SCH (21:00)
[2017-11-09] MEDS: APIXABAN 5 MG TAB PO SCH (21:31)
[2017-11-10] MEDS: ACETAMINOPHEN 325 MG TAB PO PRN ×2 (02:09→08:40)
[2017-11-10 05:32] LABS: PLATELET COUNT 158 10^3/uL (150-400)
[2017-11-10 06:00] LABS: CREATINE KINASE 86 IU/L (0-224)
[2017-11-10] MEDS: APIXABAN 5 MG TAB PO SCH (08:41)
--- NOTE | 2017-11-10 08:53 | CPEKG ---
Heart Rate: 85 RR Interval: 706 P-R Interval: 180 QRSD Interval: 86 QT Interval: 352 QTC Interval: 419 P [place]: 81 QRS [place]: 61 T Wave [place]: 37 EKG Severity - ABNORMAL ECG - EKG Impression: SINUS RHYTHM EKG Impression: PROBABLE INFERIOR INFARCT, AGE INDETERMINATE EKG Impression: Slight ST elevation noted in the inferior leadsSlightly more prominent compared EKG Impression: to November 09, 2017, 16:26.. Consider injury current or possible aneurysm. EKG Impression: Flattening of T wave in V6 compared to November 09, 2017, 13:26. Electronically Signed By: Benjamin Arce 10-Nov-2017 10:50:04
[2017-11-10] MEDS ORDERED: PANTOPRAZOLE SODIUM 40 MG TAB PO SCH (09:00)
[2017-11-10] MEDS ORDERED: predniSONE 10 MG TAB PO SCH (09:00)
[2017-11-10] MEDS ORDERED: ASPIRIN EC 81 MG TAB PO SCH (09:00)
[2017-11-10] MEDS ORDERED: NON-FORMULARY NEW DRUG (Omeprazole [Prilosec 20 Mg] 20 MG) PO SCH (09:00)
--- NOTE | 2017-11-10 10:16 | ECHO ---
[email or web address] [place] [id number] Main: [phone] Fax: Transthoracic Echocardiogram Name: JAMES IZQUIERDO MR#: [id number] Study Date: 11/10/2017 Study Time: 07:26 AM Date of : 1945 Age: 72 year(s) Height: 177.8 cm (70 in.) Weight: 78.93 kg (174 lb.) BSA: 1.97 m2 Gender: Male Examination: Echo Indication: Image Quality: Adequate Contrast: Requested by: Harvey Evans BP: 103 mmHg/60 mmHg Heart Rate: Rhythm: Indication: Procedure Staff Die Forger: Ondina Foster [facility] Reading Physician: Alexei Hurley MD Requesting Provider: Conclusions: Normal size left ventricle. No LV hypertrophy. Normal global systolic LV function. EF is 61 %. No regional wall motion abnormality. Normal diastolic LV function. Normal RV function. The left atrium is normal in size. The right atrium is normal in size. The mitral valve is normal in appearance and function. Mild mitral valve regurgitation is present. No mitral stenosis is present. The aortic valve is normal in appearance and function. There is no aortic valve regurgitation. No aortic valve stenosis is present. The tricuspid valve is normal in appearance and function. Mild tricuspid regurgitation is present. The pulmonary artery pressure is normal. Right ventricular systolic pressure measures 29mmHg. The pulmonic valve is normal in appearance and function. There is no pulmonic regurgitation seen. Normal size aortic root measuring 3.3 cm. Normal size ascending aorta measuring 3.0 cm. Measurements: Chambers Valvular Assessment AV/MV Valvular Assessment TV/PV Normal Normal Normal Name Value Range Name Value Range Name Value Range AV meanP mmHg ( - ) TR Vmax: 2.46 mm/s ( - ) Patient: JAMES IZQUIERDO Study Date: 11/10/2017 Page 1 of 3 07:26 AM Ao Jess (2D): 3.3 cm (1.4 cm-2.6 CHARLA (VTI): 2.2 cm ( - ) TR PGmax: 24 mmHg ( - ) cm) MV E Vmax: 0.65 m/s ( - ) syst. PAP: 29 mmHg ( - ) IVSd (2D): 1.1 cm (0.6 cm-1.1 MV A Vmax: 0.55 m/s ( - ) PV Vmax: 0.86 m/s (0.6 m/s-0.9 cm) MV E/A: 1.18 ( - ) m/s) LVDd (2D): 4.2 cm (4.2 cm-5.9 MV PHT: 0.063 s ( - ) PV PGmax: 3 mmHg ( - ) cm) MVA (PHT): 3.5 s ( - ) LVDs (2D): 2.6 cm (2.1 cm-4 cm) LVPWd (2D): 1.1 cm (0.6 cm-1 cm) LVOTd 2.0 cm 2.0 cm mm LVEF (BP): 61 % (>=55 %) RVDd(2D): 3.0 cm (1.9 cm-3.8 cmmm) Continued Measurements: Chambers Valvular Assessment AV/MV Valvular Assessment TV/PV Name Value Name Value Name Value LADs: 3.4 cm MV DecTime: 211 m/s CVP (est.): 5 mmHg LADs Lon.9 cm MV E' Septal: 0.07 m/s LA Area: 14.4 cm2 MV E/E' Septal: 9.80 LA Volume: 45 ml MV E/E' Lateral: 7.80 LA Volume Index: 22.8 ml/m2 RA Area: 16.1 cm2 Additional Vessels Name Value Ao Ascendin.0 cm Inferior Vena Cava: 0.9 cm Findings: Left Ventricle: Normal size left ventricle. No LV hypertrophy. Normal global systolic LV function. EF is 61 %. No regional wall motion abnormality. Normal diastolic LV function. Right Ventricle: Normal size right ventricle. Normal RV function. Left Atrium: The left atrium is normal in size. Right Atrium: The right atrium is normal in size. Mitral Valve: The mitral valve is normal in appearance and function. Mild mitral valve regurgitation is present. No mitral stenosis is present. Aortic Valve: The aortic valve is normal in appearance and function. There is no aortic valve regurgitation. No aortic valve stenosis is present. Tricuspid Valve: The tricuspid valve is normal in appearance and function. Mild tricuspid regurgitation is present. The pulmonary artery pressure is normal. Right ventricular systolic pressure measures 29mmHg. Pulmonic Valve: The pulmonic valve is normal in appearance and function. There is no pulmonic regurgitation seen. Aorta: The aorta is normal. Normal size aortic root measuring 3.3 cm. Normal size ascending aorta measuring 3.0 cm. IVC: The IVC is normal sized. Pericardium: No pericardial effusion. No pleural effusion. Patient: JAMES IZQUIERDO Study Date: 11/10/2017 Page 2 of 3 07:26 AM (No Signature Object) Patient: JAMES IZQUIERDO Study Date: 11/10/2017 Page 3 of 3 07:26 AM [id number]
[2017-11-10 11:56] VITALS: BP 118/59
--- NOTE | 2017-11-10 14:11 | GDS ---
[f rep st] DISCHARGE SUMMARY ADMISSION DIAGNOSES: 1. Paroxysmal atrial fibrillation with remote Cryoballoon ablation with breakthrough atrial fibrilla tion. 2. Noted episodes post atrial fibrillation conversion back into sinus rhythm with 5-second ventricul ar pauses. DISCHARGE DIAGNOSES: 1. Paroxysmal atrial fibrillation with further atrial fibrillation ablation with radiofrequency cath eter. 2. Noted history of ventricular pauses up to 5 seconds post conversion of atrial fibrillation. PROCEDURES PERFORMED DURING HOSPITALIZATION: 1. Electrocardiogram. 2. Electrophysiology study. 3. Successful pulmonary vein isolation procedure using RF catheter technique. 4. Echocardiogram. BRIEF HISTORY: Please see H and P, but briefly, the patient is a 72-year-old male who is known to mcconnell ve paroxysmal atrial fibrillation. He has had a prior Cryoballoon ablation in the past and had done well with symptoms, but more recently, he was having more breakthrough episodes of atrial fibrillatio n. It was also noted post conversion, he has had a previous LINQ implantation and noted on 1 of his episodes post conversion from atrial fibrillation to sinus rhythm, he did have a 5-second pause. He did see Dr. Evans in the office to discuss issues. It was recommended by Dr. Evans at that time the cons ideration of PPM implantation, but the patient did not want to have the procedure done at this time. It was also discussed about potentially having a redo ablation for his atrial fibrillation by RF cat heter and which he was in agreement. HOSPITAL COURSE: Patient was admitted to the hospital through the CVC, prepped for the procedure, an d taken to electrophysiology lab. There, Dr. Evans performed the EP procedure, followed by RF ablation of the pulmonary veins. No complications. Patient was transferred to the ICU post procedure where he has remained stable. On continuous cardiac monitoring, he has remained in sinus rhythm with no ma lignant arrhythmias or pauses noted. He has been up and walking the unit without difficulties, denyi ng any chest pain, shortness of breath, or symptoms of ischemia PHYSICAL EXAMINATION: GENERAL APPEARANCE: A medium-built, well-groomed, male. He is aler t and oriented to person, place, time, situation. Appears to be under no acute distress. VITAL SIGN S: Current are blood pressure 118/59, heart rate is 90 and sinus rhythm on the monitor, respirations 16, saturating 99% on room air. Temperature 37.1 degrees Celsius. HEENT: Head is normocephalic. Lips and tongue are pink and moist with no signs of cyanosis. Conjunctivae pink. NECK: Trachea is midline, +2 carotid pulses bilateral. No auscultated bruits, no jugular vein distention. RESPIRATOR Y: Lungs are clear to auscultation. No rhonchi, rales or wheezes. No accessory muscle use. No int ercostal muscle retraction noted. CARDIAC: Regular rate, regular rhythm, S1, S2. No S3, S4, gallop s, rubs, or murmurs noted. ABDOMEN: Soft, nontender, bowel sounds x4 quadrants. No organomegaly. No palpable masses. SKIN: [place], warm, dry. No cyanosis, no clubbing, no peripheral edema. VASCULA R: +2 carotids bilateral, +2 radials bilateral, +1 dorsal pedal and posterior tibial pulses bilatera l. GROIN: Catheter insertion sites bilateral with no redness, swelling, drainage, ecchymosis, or he matoma. No auscultated bruit noted over either site. LABORATORY STUDIES: Drawn today show WBC of 9.91, hemoglobin of 14.8, hematocrit 43.7, platelet coun t 158. Sodium 139, potassium 4.1, chloride 107, CO2 of 24, BUN 12, creatinine 1.1, glucose 100, calc ium 7.9. CK of 86, CK-MB fraction 1.10, troponin of 0.413. STUDIES: Electrophysiology and ablation procedure as mentioned above. Morning electrocardiogram showing sinus rhythm, normal axis, noted T-waves in inferior leads with inv erted T-wave in lead III. Echocardiogram done this morning showing normal LV systolic function with no wall motion abnormalitie s, ejection fraction was estimated at 61%, mild MR, mild TR, normal RVSP at 29 mmHg, no pericardial e ffusion. DISCHARGE DISPOSITION: Patient will be discharged home in stable condition. He is under activity re strictions of not lifting more than 10-15 pounds for the next week and no strenuous activity for the next 2 weeks. DISCHARGE MEDICATIONS: Please see discharge medication reconciliation. Note the patient has been re started on home dose of Eliquis. He was also placed on Prilosec OTC for the next 6 weeks. DISCHARGE INSTRUCTIONS: Post radiofrequency atrial fibrillation ablation post discharge instructions went over with the patient and including monitoring for signs of infection, bleeding precaution , bathing precautions, medication compliance. Patient has been encouraged to use incentive spiromete r for the next 2 days while awake. He has also been asked, for the next 6 weeks every 35-45 minutes while sitting, he can get up and walk for a few minutes. He knows what to monitor for signs of infec tion and has been aware to watch for signs of bleeding from insertion sites. At the time of discharg e, both patient and have no questions or concerns. They have been told if any problems or maria m rns come up post discharge, they are to notify our office or return to the hospital. The patient has a followup appointment with Dr. Evans on November 25. Total time spent on discharge greater than 30 minutes. /[id number]/MODL
--- NOTE | 2017-11-11 08:05 | ECHO ---
[email or web address] [address] [address] Main: [phone] Fax: Transesophageal Echocardiography Name: JAMES IZQUIERDO MR#: [id number] Study Date: 11/09/2017 Study Time: 01:20 PM Date of : 1945 Age: 72 year(s) Height: ( ) Weight: ( ) BSA: Gender: Male Examination: FOREST Indication: Pre EP Image Quality: Contrast: Requested by: Harvey Evans Heart Rate: Rhythm: BP: / Procedure Staff Field Specialist: Dayron Guerrero RDCS Reading Physician: Harvey Evans MD Requesting Provider: FOREST Exam Details Measurements: Chambers Valvular Assessment AV/MV Valvular Assessment TV/PV Normal Normal Normal Name Value Range Name Value Range Name Value Range Additional Measurements: Findings: Left Ventricle: Normal global systolic LV function. Right Ventricle: Normal size right ventricle. Left Atrium: An agitated saline study was performed and was positive for intracardiac shunting. Left Atrial Appendage: Good color flow doppler in the left atrial appendage. No thrombus in left appendage. Mitral Valve: The mitral valve is normal in appearance. Mild mitral valve regurgitation is present. Aortic Valve: The aortic valve is tri-leaflet. Trivial aortic valve regurgitation. Pericardium: No pericardial effusion. Patient: JAMES IZQUIERDO Study Date: 11/09/2017 Page 1 of 2 01:20 PM l1n (No Signature Object) Patient: JAMES IZQUIERDO Study Date: 11/09/2017 Page 2 of 2 01:20 PM [id number]
== END 2017-11-10 13:43 | disposition home or self-care (01) ==
LOC: FCATH 11:24 → F2N 15:51 → INTOOBSV 15:51
PROVIDERS: ADMIT Internal Medicine Cardiovascular Disease; ATTEND Internal Medicine Cardiovascular Disease
DX: I48.0 Paroxysmal atrial fibrillation (principal); I10 Essential (primary) hypertension; G70.00 Myasthenia gravis without (acute) exacerbation; Z79.01 Long term (current) use of anticoagulants; Z79.82 Long term (current) use of aspirin; Z86.73 Personal history of transient ischemic attack (TIA), and cerebral infarction without residual deficits
CPT/HCPCS: 93005; 93306; 93312; 93613; 93656; 93662; C1731; C1732; C1759; C1893; J1100; J1644; J2250; J2370; J2405; J2704; J2720; J3010; J7512

== ENCOUNTER 2018-05-04 06:09 | Emergency (ER) | payer OTHER ==
[2018-05-04] MEDS ORDERED: OXYMETAZOLINE 30 ML NASAL SPRAY ONE (06:16)
[2018-05-04] MEDS ORDERED: OXYMETAZOLINE 30 ML NASAL SPRAY EACHNARE ONE (06:24)
[2018-05-04] MEDS ORDERED: TRANEXAMIC ACID 1,000 MG/10 ML VIAL TP ONE (06:27)
--- NOTE | 2018-05-04 06:43 | EDPHY ---
H & P Stated Complaint: bloody nose on eliquis Time Seen by Provider: 05/04/18 06:18 HPI/ROS: HPI The patient presents with epistaxis which began about 20 min prior to arrival when he awoke from sleep. He is on Eliquis and aspirin for atrial fibrillation. He has had history of posterior nosebleed about 20 years ago. The bleeding has been constant, he is not sure which nostril it is coming from.. REVIEW OF SYSTEMS 10 systems were reviewed and negative with the exception of the elements mentioned in the history of present illness. PMHx: Atrial fibrillation on Eliquis an aspirin Soc Hx: Here with his PHYSICAL General Appearance: Alert, no distress Eyes: Pupils equal and round no pallor or injection ENT, Mouth: Left naris with active epistaxis with some clots passed, on initial exam, unable to visualize source of bleeding, Mucous membranes moist Respiratory: There are no retractions, lungs are clear to auscultation Cardiovascular: Regular rate and rhythm Gastrointestinal: Abdomen is soft and non-tender, no masses, bowel sounds normal Neurological: A&O, moves all extremities Skin: Warm and dry, no rashes Musculoskeletal: Neck is supple non tender Extremities: symmetrical, full range of motion Psychiatric: Patient is oriented X 3, there is no agitation Source: Patient Exam Limitations: No limitations - Personal History Current Tetanus/Diphtheria Vaccine: Yes - Medical/Surgical History Hx Asthma: No Hx Chronic Respiratory Disease: No Hx Diabetes: No Hx Cardiac Disease: Yes Hx Renal Disease: No Hx Cirrhosis: No Hx Alcoholism: No Hx HIV/AIDS: No Hx Splenectomy or Spleen Trauma: No Other PMH: PMH- AFIB, ablation 09/11. PSH- TRP, R TOTAL HIP - Social History Smoking Status: Never smoked Constitutional: Initial Vital Signs Temperature (C) 36.4 C 05/04/18 06:11 Heart Rate 92 05/04/18 06:11 Respiratory Rate 16 05/04/18 06:11 Blood Pressure 136/86 H 05/04/18 06:11 O2 Sat (%) 97 05/04/18 06:11 O2 Delivery Mode Room Air Allergies/Adverse Reactions: ketamine Allergy (Verified 05/04/18 06:12) Other-Enter Comments Home Medications: Medication Instructions Recorded Aspirin EC [Aspirin EC 81 mg (*)] 81 mg PO DAILY 07/13/16 Rosuvastatin Calcium [Crestor] 10 mg PO HS 07/13/16 Omeprazole [Prilosec 20 mg] 20 mg PO DAILY 08/31/16 Apixaban [Eliquis] 5 mg PO BID 11/04/17 Nebivolol HCl [Bystolic 5 mg (*)] 2.5 mg PO HS 11/04/17 predniSONE 10 mg PO Q2D 11/04/17 Cephalexin [Keflex (*)] 500 mg PO Q6H #28 cap 05/04/18 Medical Decision Making Procedures: NOSE BLEED Procedure: Epistaxis control. Indication: nosebleed not controlled by direct pressure. Risks, benefits, alternatives discussed with patient and consent obtained. The left naris was prepped with Afrin spray. The anterior epistaxis was identified. The patient was treated with packing. Tranexamic acid soaked cotton ball. This was not successful, thus posterior rhino rocket was placed with good success. Following the procedure the patient was re-examined and the bleeding was well controlled. The patient tolerated the procedure well. The procedure was performed by myself. Differential Diagnosis: 72-year-old male presents with about 20 min of left-sided epistaxis, on Eliquis an aspirin. On exam, he has ongoing bleeding here. We used nasal tongs and Afrin without any success. I then packed his nose with tranexamic acid soaked cotton ball. The bleeding persisted, thus he was packed with a rhino rocket with good result. I consulted with his friend and primary ENT Dr. Kirkland. He recommends Keflex and nasal packing for 5 days. He will be able to follow with him then. I advised the patient to call the office to make an appointment. - Data Points Medications Given: Discontinued Medications Oxymetazoline HCl (Afrin Nasal [place]) 2 sprays EACHNARE EDNOW ONE Stop: 05/04/18 06:25 Last Admin: 05/04/18 06:25 Dose: 2 sprays Tranexamic Acid (Cyklokapron) 500 mg TP EDNOW ONE Stop: 05/04/18 06:28 Last Admin: 05/04/18 06:35 Dose: 1,000 mg Departure - Departure Disposition: Home, Routine, Self-Care Clinical Impression: Acute anterior epistaxis Condition: Good Instructions: Nosebleed (ED) Additional Instructions: Please follow-up with Dr. Kirkland's office on Wednesday. Referrals: Lamin Kirkland MD [Medical Doctor] - As per Instructions Prescriptions: Cephalexin [Keflex (*)] 500 mg PO Q6H #28 cap
[2018-05-04 07:27] VITALS: BP 151/99
== END 2018-05-04 07:26 | disposition home or self-care (01) ==
PROC: 2Y41X5Z Packing of Nasal Region using Packing Material (ICD-10-PCS; principal; 2018-05-04)
DX: R04.0 Epistaxis (principal); Z79.01 Long term (current) use of anticoagulants; I48.91 Unspecified atrial fibrillation

== ENCOUNTER → 2018-05-30 | Outpatient (CLI) | payer OTHER | LOC: BHFA 15:30 | PROVIDERS: ATTEND Internal Medicine Cardiovascular Disease | DX: I67.9 Cerebrovascular disease, unspecified (principal) ==

== ENCOUNTER → 2018-08-16 | Outpatient (CLI) | payer OTHER ==
[~2018-08-16] MED LIST changes: +IOPAMIDOL (ISOVUE 370) 75 ML BTL IV ONE; -LIDOCAINE 1% 300 MG/30 ML SDV SC ONE
== END ==
LOC: FIMAGING 11:40
PROVIDERS: ATTEND Psychiatry & Neurology Neurology
DX: I70.0 Atherosclerosis of aorta (principal)
CPT/HCPCS: 71260; Q9967; 82565-PO